=== PATIENT | female | born 2000 | race Caucasian/White ===

== ENCOUNTER 2021-03-25 08:22 | Emergency (ER) | payer MEDICAID ==
[~2021-03-25] VITALS: Ht 165.1 cm; Wt 85.7 kg
[2021-03-25 08:49] VITALS: BP 130/73
--- NOTE | 2021-03-25 08:56 | NUR ---
DR WATTERS AT BEDSIDE.
--- NOTE | 2021-03-25 09:00 | NUR ---
21 Y/O F C/O DIZZINES AND HEADACHE FOR THE PAST WEEK. HER HEADACHE PAIN LEVEL WAS AT 10/10 THIS MORNIG BUT NOT ITS AT A 0/10. SHE ALSO C/O LOWER ABD PAIN. NKA OR HX.
--- NOTE | 2021-03-25 09:21 | NUR ---
Patient discharged with v/s stable. Written and verbal after care instructions given and explained. Patient verbalized understanding. Ambulatory with steady gait. All questions addressed prior to discharge. Advised to follow up with PMD.
--- NOTE | 2021-03-25 09:22 | NUR ---
Chart checked and completed. The patient's care was reviewed and supervised by Jocelyn Wheeler RN.
[2021-03-25 11:32] LABS: APPEARANCE,URINE CLEAR (CLEAR); BILIRUBIN,URINE NEGATIVE (NEGATIVE); BLOOD, URINE NEGATIVE (NEGATIVE); COLOR,URINE YELLOW (YELLOW); LEUKOCYTE ESTERASE ,URINE NEGATIVE (NEGATIVE); NITRITE, URINE NEGATIVE (NEGATIVE); UGLUCOSE NEGATIVE (NEGATIVE)
== END 2021-03-25 09:21 | disposition home or self-care (01) ==
LOC: MED 08:22
DX: R42 Dizziness and giddiness (principal); R10.9 Unspecified abdominal pain; Z00.01 Encounter for general adult medical examination with abnormal findings
CPT/HCPCS: 81003; 81025; 99283